=== PATIENT | male | born 1950 | race Caucasian/White ===

== ENCOUNTER → 2018-03-19 | Day surgery (SDC) | payer MEDICARE, BC ==
[~2018-03-19] MED LIST: CELE1CAP8 PO; CELE200 PO; CYAN100025 SL; ESOM1CAP6 PO; HYDR50TA3 PO; HYDR50TA5 PO; LIDOCAINE HCL 1% 30 ML VIAL INFIL ONE; NEXI40CA PO; NO ITAB PO; PERC5TAB12 PO; SODIUM CHLORIDE 0.9% 10 ML VIAL ONE; TAB-TAB PO; TRAM50TA PO; TRIL135C PO; VESI10TA2 PO; VESI10TA4 PO; VITA10002 PO; XARE10TA PO; methylPREDNISolone ACETATE 40 MG/ML VIAL I-ARTICULR ONE
--- NOTE | 2018-03-19 08:45 | M6 ---
cc: Jackie Doty MD DATE: 03/19/2018 PROCEDURE PERFORMED: Radiofrequency ablation sensory branches right femoral nerve (radiofrequency ablation right hip joint). History and physical was completed and signed. Consent was signed. Procedure site was marked. Medications were listed and reconciled. Pain score was recorded. Allergies were noted. Time out was taken. Fluoroscopy time was recorded where applicable. Blood pressure cuff, pulse oximeter and EKG were applied. The patient was placed in the supine position on the Jg table. His right hip was prepped with alcohol and 10% Betadine solution and draped with sterile drapes. Fluoroscopy was used to visualize the right acetabulum. The skin was infiltrated with 1% Xylocaine, using a 27-gauge needle, then an insulated radiofrequency needle was advanced to the cephalad anterior portion of the acetabulum and the anatomical location of the sensory branches of the femoral nerve. Fluoroscopy was used to confirm proper position. Once positioned correctly 4 different thermal lesions were made at 60 degrees centigrade x 2-1/2 minutes with 10 mm active tip. Then, 40 mg of Depo-Medrol was injected in the area. The needle was removed intact and the patient was taken to the recovery room with stable vital signs and neurologically intact. Jackie Doty MD [facility]/TL , 08:30 AM , 08:44 AM
== END | disposition home or self-care (01) ==
LOC: PHSDC 06:22
PROVIDERS: ATTEND Pain Medicine Interventional Pain Medicine
DX: M25.551 Pain in right hip (principal); M54.5 Low back pain
CPT/HCPCS: 64640; J1030